=== PATIENT | male | born 1980 | race African-American/Black ===

== ENCOUNTER 2017-03-14 21:04 | Emergency (ER) | payer MEDICAID ==
[~2017-03-14] VITALS: Ht 182.9 cm; Wt 68.0 kg
--- NOTE | 2017-03-14 21:28 | NUR ---
Pt ambulated to room with steady gait. Pt c/o R. lower back pain radiating down to right buttock. Pt sts started yesterday and is unrelieved with home medications. Pt resting in position of comfort for self, awaiting further eval. Family at bedside.
[2017-03-14] MEDS ORDERED: PROMETHAZINE HCL 25 MG/1 ML VIAL IM ONE (21:45)
[2017-03-14] MEDS ORDERED: HYDROMORPHONE 1 MG/1 ML DISP.SYRIN IM ONE (21:45)
--- NOTE | 2017-03-14 21:49 | NUR ---
Pt seen by Md. Pt medicated for pain, will monitor for effects of medication. Pt resting in position of comfort for self. Family at bedside.
[2017-03-14] MEDS ORDERED: HYDROMORPHONE 1 MG/1 ML DISP.SYRIN ONE (21:55)
[2017-03-14] MEDS ORDERED: PROMETHAZINE HCL 25 MG/1 ML VIAL ONE (21:55)
--- NOTE | 2017-03-14 22:26 | NUR ---
Pt sts pain improved with medication. Pt stable for discharge per MD. Pt and family given ACI. Both verbalized understanding of dc instructions. 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
[2017-03-14 22:28] VITALS: BP 107/77
== END 2017-03-14 22:28 | disposition home or self-care (01) ==
LOC: ER 21:07
DX: M54.5 Low back pain (principal); F10.10 Alcohol abuse, uncomplicated
CPT/HCPCS: A4663; J1170; J2550

== ENCOUNTER 2017-12-21 11:36 | Emergency (ER) | payer MEDICAID ==
[~2017-12-21] VITALS: Ht 180.3 cm; Wt 68.0 kg
[2017-12-21] MEDS ORDERED: CEFTRIAXONE 500 MG VIAL IM ONE (12:00)
[2017-12-21] MEDS ORDERED: AZITHROMYCIN 250 MG TABLET PO ONE (12:00)
[2017-12-21] MEDS ORDERED: LIDOCAINE HCL 1% 20 ML VIAL ONE (12:10)
[2017-12-21] MEDS ORDERED: AZITHROMYCIN 250 MG TABLET ONE (12:10)
[2017-12-21] MEDS ORDERED: CEFTRIAXONE 500 MG VIAL ONE (12:10)
--- NOTE | 2017-12-21 12:19 | NUR ---
Patient discharged to home in stable conditon. Written and verbal after care instructions given. Patient verbalizes understanding of instructions.PT SAYS HAS HAD ROCEPHIN IM SHOTS BEFRE AND SIS NOT HAVE ALLERGIC REACTION TO IT.
== END 2017-12-21 12:23 | disposition home or self-care (01) ==
LOC: ER 11:36
DX: A64 Unspecified sexually transmitted disease (principal)
CPT/HCPCS: A4663; J0696; J3490; Q0144

== ENCOUNTER 2018-01-06 12:25 | Emergency (ER) | payer MEDICAID ==
[~2018-01-06] VITALS: Ht 180.3 cm; Wt 68.0 kg
[2018-01-06] MEDS ORDERED: KETOROLAC TROMETHAMINE 30 MG INJ IM ONE (12:45)
[2018-01-06] MEDS ORDERED: KETOROLAC TROMETHAMINE 30 MG INJ ONE (12:50)
--- NOTE | 2018-01-06 13:08 | NUR ---
mse completed, medication admin. pt d/c'd home, aci/rx x4 given. pt ambulated w/o diff/took all belongings.
[2018-01-06 13:10] VITALS: BP 120/74
== END 2018-01-06 13:10 | disposition home or self-care (01) ==
LOC: ER 12:29
DX: M54.5 Low back pain (principal)
CPT/HCPCS: A4663; J1885

== ENCOUNTER 2019-01-28 18:29 | Emergency (ER) | payer MEDICAID ==
[~2019-01-28] VITALS: Ht 180.3 cm; Wt 68.0 kg
[2019-01-28 18:56] VITALS: BP 116/75
--- NOTE | 2019-01-28 18:56 | NUR ---
Patient discharged to home in stable conditon. Written and verbal after care instructions given. Patient verbalizes understanding of instructions.
== END 2019-01-28 18:57 | disposition home or self-care (01) ==
LOC: ER 18:32
DX: A60.00 Herpesviral infection of urogenital system, unspecified (principal)
CPT/HCPCS: A4663

== ENCOUNTER 2019-03-31 22:21 | Emergency (ER) | payer MEDICAID ==
[~2019-03-31] VITALS: Ht 180.3 cm; Wt 68.0 kg
--- NOTE | 2019-03-31 22:41 | NUR ---
ekg monitor tech in room
--- NOTE | 2019-03-31 22:57 | NUR ---
Patient discharged to home in stable conditon. Written and verbal after care instructions given. Patient verbalizes understanding of instructions. patient ambulatory with steady gait. Patient personal belongings and exit care package taken with patient upon discharge.
[2019-03-31 23:00] VITALS: BP 113/70
== END 2019-03-31 22:57 | disposition home or self-care (01) ==
LOC: ER 22:23
DX: S56.416A Strain of extensor muscle, fascia and tendon of left ring finger at forearm level, initial encounter (principal); X58.XXXA Exposure to other specified factors, initial encounter; Y93.89 Activity, other specified; Y92.89 Other specified places as the place of occurrence of the external cause; Y99.8 Other external cause status
CPT/HCPCS: 73140; A4663

== ENCOUNTER 2019-04-14 10:01 | Emergency (ER) | payer MEDICAID ==
[~2019-04-14] VITALS: Ht 180.3 cm; Wt 68.0 kg
--- NOTE | 2019-04-14 10:19 | NUR ---
at bedside to examine patient.
--- NOTE | 2019-04-14 10:25 | NUR ---
Patient was given discharge instruction and prescription given to patient by physician. Patient understood all instructions and is prepared to discharge to self care.
== END 2019-04-14 10:27 | disposition home or self-care (01) ==
LOC: ER 10:01
DX: A60.00 Herpesviral infection of urogenital system, unspecified (principal)
CPT/HCPCS: A4663

== ENCOUNTER 2019-06-10 07:06 | Emergency (ER) | payer MEDICAID ==
[~2019-06-10] VITALS: Ht 182.9 cm; Wt 70.3 kg
--- NOTE | 2019-06-10 07:17 | NUR ---
at bedside to examine patient.
--- NOTE | 2019-06-10 08:19 | NUR ---
DCD instruction and prescription who verbalized understanding left room ambulatory no c/of pain at this time. girlfriend/ at bedside.
== END 2019-06-10 08:25 | disposition home or self-care (01) ==
LOC: ER 07:07
DX: S93.401A Sprain of unspecified ligament of right ankle, initial encounter (principal); X50.1XXA Overexertion from prolonged static or awkward postures, initial encounter; Y93.89 Activity, other specified; Y92.89 Other specified places as the place of occurrence of the external cause; Y99.8 Other external cause status
CPT/HCPCS: 73610; A4663

== ENCOUNTER 2019-06-22 22:19 | Emergency (ER) | payer MEDICAID ==
[~2019-06-22] VITALS: Ht 180.3 cm; Wt 70.3 kg
--- NOTE | 2019-06-22 22:28 | NUR ---
Patient came from home, chief complain of back pain. rated at 10, from scale 0-10. Describes the pain as throbbing that radiates to the right lefg. patient also states she would like medication ofr his genital herpes.
--- NOTE | 2019-06-22 22:31 | NUR ---
Dr. Vidal at bedside for evaluation and assessment.
[2019-06-22] MEDS ORDERED: KETOROLAC TROMETHAMINE 60 MG INJ IM ONE ×2 (22:37→22:45)
[2019-06-22] MEDS ORDERED: ACYCLOVIR 500 MG VIAL IV ONE (22:38)
[2019-06-22] MEDS ORDERED: VALACYCLOVIR HCL 500 MG TABLET ONE (22:40)
[2019-06-22] MEDS ORDERED: VALACYCLOVIR HCL 500 MG TABLET PO ONE (22:45)
--- NOTE | 2019-06-22 22:47 | NUR ---
Patient discharged to home in stable conditon. Written and verbal after care instructions given. Patient verbalizes understanding of instructions. Patient self-ambulatory with steady gait. Patient is alert and oriented x4. Exit care package and personal belongings taken home with the patient at discharge. Patient denies any pain/discomfort at discharge. Pt has good understanding of health and discharge instructions. Consents to follow up with PCP.
[2019-06-22 22:48] VITALS: BP 110/84
== END 2019-06-22 22:49 | disposition home or self-care (01) ==
LOC: ER 22:20
DX: M54.6 Pain in thoracic spine (principal); A60.00 Herpesviral infection of urogenital system, unspecified; Z76.0 Encounter for issue of repeat prescription
CPT/HCPCS: 96372; 99283; J1885; A4663; J0133

== ENCOUNTER 2019-11-02 05:48 | Emergency (ER) | payer MEDICAID ==
[~2019-11-02] VITALS: Ht 180.3 cm; Wt 74.8 kg
--- NOTE | 2019-11-02 06:12 | NUR ---
pt presented to ER in a wheelchair c/o sciatica pain on R side, starting from pts back down to his leg. pt is a/ox4, able to speek in complete sentences, speech is clear, no neuro deficit noted.
[2019-11-02] MEDS ORDERED: HYDROCODONE/APAP 10-325 MG TABLET PO ONE (06:15)
[2019-11-02] MEDS ORDERED: KETOROLAC TROMETHAMINE 60 MG INJ IM ONE ×2 (06:15→06:22)
[2019-11-02] MEDS ORDERED: HYDROCODONE/APAP 10-325 MG TABLET ONE (06:22)
[2019-11-02] MEDS ORDERED: ONDANSETRON ODT 4 MG TAB.RAPDIS SL ONE (06:30)
[2019-11-02] MEDS ORDERED: ONDANSETRON HCL 4 MG TABLET ONE (06:32)
--- NOTE | 2019-11-02 06:38 | NUR ---
Patient discharged to home in stable conditon.Pt ambulated w/steady gait accompanied by his gf. Written and verbal after care instructions given. Patient verbalizes understanding of instructions.All belongings with patient.
[2019-11-02 06:41] VITALS: BP 102/70
== END 2019-11-02 06:50 | disposition home or self-care (01) ==
LOC: ER 05:50
DX: M54.5 Low back pain (principal); Z60.2 Problems related to living alone
CPT/HCPCS: 96372; 99283; J1885; A4663; Q0162

== ENCOUNTER 2019-11-15 20:41 | Emergency (ER) | payer MEDICAID ==
[~2019-11-15] VITALS: Ht 180.3 cm; Wt 74.8 kg
--- NOTE | 2019-11-15 20:53 | NUR ---
DR ROBINS AT BEDSIDE FOR MSE.
[2019-11-15] MEDS ORDERED: PANTOPRAZOLE SODIUM 40 MG TABLET.DR PO ONE ×2 (21:00→21:03)
[2019-11-15] MEDS ORDERED: MAG HYDROX/AL HYDROX/SIMETH 30 ML LIQUID UDC PO ONE (21:00)
[2019-11-15] MEDS ORDERED: DICYCLOMINE HCL LIQ 10 MG/5 ML UDC PO ONE (21:00)
[2019-11-15] MEDS ORDERED: MAG HYDROX/AL HYDROX/SIMETH 30 ML LIQUID UDC ONE (21:02)
[2019-11-15] MEDS ORDERED: DICYCLOMINE HCL LIQ 10 MG/5 ML UDC ONE (21:03)
--- NOTE | 2019-11-15 21:35 | NUR ---
XRAY at bedside.
--- NOTE | 2019-11-15 21:57 | NUR ---
Patient discharged to home in stable conditon. Written and verbal after care instructions given. Patient verbalizes understanding of instructions. Pt ambulated out of ER with stable gait. All belongings with pt. No acute distress noted.
[2019-11-15 21:58] VITALS: BP 125/82
== END 2019-11-15 21:59 | disposition home or self-care (01) ==
LOC: ER 20:41
DX: R10.13 Epigastric pain (principal)
CPT/HCPCS: 71045; 73030; A4663

== ENCOUNTER 2020-05-31 05:35 | Emergency (ER) | payer MEDICAID ==
[~2020-05-31] VITALS: Ht 180.3 cm; Wt 70.3 kg
--- NOTE | 2020-05-31 05:54 | NUR ---
Dr. Vidal at bedside for MSE.
[2020-05-31] MEDS ORDERED: HYDROCODONE/APAP 10-325 MG TABLET PO ONE (06:00)
[2020-05-31] MEDS ORDERED: KETOROLAC TROMETHAMINE 30 MG INJ IM ONE (06:00)
[2020-05-31] MEDS ORDERED: ONDANSETRON ODT 4 MG TAB.RAPDIS SL ONE (06:00)
[2020-05-31] MEDS ORDERED: KETOROLAC TROMETHAMINE 30 MG INJ ONE (06:03)
[2020-05-31] MEDS ORDERED: HYDROCODONE/APAP 10-325 MG TABLET ONE (06:04)
[2020-05-31] MEDS ORDERED: ONDANSETRON ODT 4 MG TAB.RAPDIS ONE (06:04)
--- NOTE | 2020-05-31 06:11 | NUR ---
Patient discharged to home in stable condition. Written and verbal after care instructions given. Patient verbalizes understanding of instructions. Stressed follow up or return to ER for worsening s/s. Patient out of ER with steady gait, no acute signs of distress, VSS, all belongings taken, instructed not to drive.
[2020-05-31 06:12] VITALS: BP 105/67
== END 2020-05-31 06:14 | disposition home or self-care (01) ==
LOC: ER 05:37
DX: M54.5 Low back pain (principal); Z86.19 Personal history of other infectious and parasitic diseases
CPT/HCPCS: 96372; 99283; J1885; A4663; Q0162

== ENCOUNTER 2020-08-28 19:36 | Emergency (ER) | payer MEDICAID | END 2020-08-28 20:12 | disposition left against medical advice (07) | LOC: ER 19:38 | DX: Z75.3 Unavailability and inaccessibility of health-care facilities (principal) ==

== ENCOUNTER 2021-02-02 21:06 | Emergency (ER) | payer MEDICAID ==
[~2021-02-02] VITALS: Ht 182.9 cm; Wt 77.1 kg
--- NOTE | 2021-02-02 21:30 | NUR ---
Pt. arrived from home, chief complaint is sore throat that has not been relieved by otc medication. Pt. states his neck feels swollen in his lymph node area, his tounge also feels swollen and painful to him. Pt. also states this pain is radiating to his head giving him a headache. Pt. states pain is 12/10.
[2021-02-02] MEDS ORDERED: AMOX250T PO (21:43)
[2021-02-02] MEDS ORDERED: DEXAMETHASONE SOD PHOSPHATE 4 MG INJ IM ONE (21:45)
[2021-02-02] MEDS ORDERED: DEXAMETHASONE SOD PHOSPHATE 4 MG INJ ONE (21:45)
--- NOTE | 2021-02-02 21:48 | NUR ---
Patient discharged to home in stable condition. Written and verbal after care instructions given. Patient verbalizes understanding of instructions. Stressed follow up or return to ER for worsening s/s. Vss, all belongings with pt.
[2021-02-02] MEDS ORDERED: AMOXicillin 250 MG CAPSULE PO ONE (22:00)
[2021-02-02] MEDS ORDERED: AMOXicillin 250 MG CAPSULE ONE (22:03)
[2021-02-02 22:19] VITALS: BP 119/69
== END 2021-02-02 21:48 | disposition home or self-care (01) ==
LOC: ER 21:07
DX: J02.9 Acute pharyngitis, unspecified (principal); Z86.19 Personal history of other infectious and parasitic diseases
CPT/HCPCS: 96372; 99283; J1100; A4663

== ENCOUNTER 2021-03-04 16:05 | Emergency (ER) | payer MEDICAID ==
[~2021-03-04] VITALS: Ht 182.9 cm; Wt 72.6 kg
[~2021-03-04 16:05] MED LIST: AMOX250T PO
--- NOTE | 2021-03-04 16:18 | NUR ---
Dr Vidal at the bedside for MSE.
[2021-03-04] MEDS ORDERED: KETOROLAC TROMETHAMINE 15 MG INJ IM ONE (16:30)
[2021-03-04] MEDS ORDERED: KETOROLAC TROMETHAMINE 15 MG INJ ONE (16:34)
[2021-03-04] MEDS ORDERED: PRED20TA PO (16:50)
[2021-03-04] MEDS ORDERED: CYCL5TAB PO (16:50)
[2021-03-04] MEDS ORDERED: HYDR-3972 PO (16:50)
[2021-03-04] MEDS ORDERED: ONDA4TAB5 PO (16:50)
[2021-03-04 16:58] VITALS: BP 109/68
--- NOTE | 2021-03-04 16:58 | NUR ---
Patient discharged to home in stable condition. Written and verbal after care instructions given. Patient verbalizes understanding of instructions. Stressed follow up or return to ER for worsening s/s. Pt left ER w/ steady gait.
== END 2021-03-04 16:59 | disposition home or self-care (01) ==
LOC: ER 16:06
DX: M54.41 Lumbago with sciatica, right side (principal)
CPT/HCPCS: 96372; 99283; J1885; A4663

== ENCOUNTER 2021-12-03 20:58 | Emergency (ER) | payer MEDICAID ==
[~2021-12-03] VITALS: Ht 180.3 cm; Wt 74.8 kg
[~2021-12-03 20:58] MED LIST changes: +CYCL5TAB PO; +HYDR-3972 PO; +ONDA4TAB5 PO; +PRED20TA PO
[2021-12-03] MEDS ORDERED: CYCL10TA9 PO (21:55)
[2021-12-03] MEDS ORDERED: HYDR-3980 PO (21:55)
--- NOTE | 2021-12-03 21:55 | NUR ---
SEEN AND EXAMINED BY TAMAR LOPEZ AT B/S.
[2021-12-03] MEDS ORDERED: CYCLOBENZAPRINE HCL 10 MG TABLET PO ONE (22:00)
[2021-12-03] MEDS ORDERED: KETOROLAC TROMETHAMINE 60 MG INJ IM ONE ×2 (22:00→22:10)
[2021-12-03] MEDS ORDERED: ONDANSETRON ODT 4 MG TAB.RAPDIS SL ONE (22:00)
[2021-12-03] MEDS ORDERED: HYDROCODONE/APAP 10-325 MG TABLET PO ONE (22:00)
[2021-12-03] MEDS ORDERED: ONDANSETRON ODT 4 MG TAB.RAPDIS ONE (22:10)
[2021-12-03] MEDS ORDERED: CYCLOBENZAPRINE HCL 10 MG TABLET ONE (22:11)
[2021-12-03] MEDS ORDERED: HYDROCODONE/APAP 10-325 MG TABLET ONE (22:11)
--- NOTE | 2021-12-03 23:09 | NUR ---
Patient discharged to home in stable condition. Written and verbal after care instructions given. Patient verbalizes understanding of instructions. Stressed follow up or return to ER for worsening s/s. V/S WNL AND PATIENT WENT HOME WITH ALL BELONGINGS AND AMBULATORY ,AAOX4/MAEX4.
[2021-12-03 23:11] VITALS: BP 105/68
== END 2021-12-03 22:26 | disposition home or self-care (01) ==
LOC: ER 21:01
DX: G89.29 Other chronic pain (principal); M54.50 Low back pain, unspecified
CPT/HCPCS: 96372; 99284; J1885; A4663; Q0162

== ENCOUNTER 2022-02-14 08:31 | Emergency (ER) | payer MEDICAID ==
[~2022-02-14] VITALS: Ht 180.3 cm; Wt 74.8 kg
[~2022-02-14 08:31] MED LIST changes: +CYCL10TA9 PO; +HYDR-3980 PO
--- NOTE | 2022-02-14 08:48 | NUR ---
DR KOCH AT BEDSIDE FOR EVALUATION.
[2022-02-14] MEDS ORDERED: KETOROLAC TROMETHAMINE 60 MG INJ IM ONE ×2 (09:00→09:04)
[2022-02-14 09:56] LABS: *BILIRUBIN,URIN NEGATIVE (NEGATIVE); *BLOOD, URINE NEGATIVE (NEGATIVE); *CLARITY,URINE CLEAR (CLEAR); *COLOR,URINE YELLOW (YELLOW); *KETONES,URINE NEGATIVE (NEGATIVE); *UROBILINOGEN,URINE 0.2 E.U./dl (NORMAL); LEUKOCYTE ESTERASE ,URINE NEGATIVE (NEGATIVE); NITRITE, URINE NEGATIVE (NEGATIVE); UGLUCOSE NEGATIVE (NEGATIVE)
[2022-02-14] MEDS ORDERED: HYDR-4209 PO (10:57)
[2022-02-14 11:05] VITALS: BP 102/55
--- NOTE | 2022-02-14 11:05 | NUR ---
Patient discharged to home in stable condition. Written and verbal after care instructions given. Patient verbalizes understanding of instructions. Stressed follow up or return to ER for worsening s/s.
== END 2022-02-14 11:06 | disposition home or self-care (01) ==
LOC: ER 08:33
DX: R10.9 Unspecified abdominal pain (principal)
CPT/HCPCS: 81003; 96372; 99283; J1885; A4663

== ENCOUNTER 2022-11-24 23:35 | Emergency (ER) | payer MEDICAID ==
[~2022-11-24] VITALS: Ht 180.3 cm; Wt 77.1 kg
[~2022-11-24 23:35] MED LIST changes: +HYDR-4209 PO
--- NOTE | 2022-11-24 23:50 | NUR ---
Dr Wallis at bedside, MSE in progress
[2022-11-25] MEDS ORDERED: ONDANSETRON HCL 4 MG TABLET PO ONE
[2022-11-25] MEDS ORDERED: HYDROMORPHONE 1 MG/1 ML DISP.SYRIN IM ONE
[2022-11-25] MEDS ORDERED: KETOROLAC TROMETHAMINE 60 MG INJ IM ONE ×2 (00:04)
[2022-11-25] MEDS ORDERED: HYDROMORPHONE 2 MG/1 ML DISP.SYRIN ONE (00:04)
[2022-11-25] MEDS ORDERED: ONDANSETRON HCL 4 MG TABLET ONE (00:04)
[2022-11-25] MEDS ORDERED: DOCU-141 PO (00:05)
[2022-11-25] MEDS ORDERED: HYDR-3980 PO (00:05)
--- NOTE | 2022-11-25 00:12 | NUR ---
Patient discharged to home in stable condition. Written and verbal after care instructions given. Patient verbalizes understanding of instructions. Stressed follow up or return to ER for worsening s/s. Patient is a/ox4, NAD noted. patient is ambulatory with steady gait
[2022-11-25 00:14] VITALS: BP 115/73
== END 2022-11-25 00:18 | disposition home or self-care (01) ==
LOC: ER 23:37
DX: M54.41 Lumbago with sciatica, right side (principal); Z79.2 Long term (current) use of antibiotics; Z79.899 Other long term (current) drug therapy
CPT/HCPCS: 99284; 96372 ×2; J1885; J1170; A4663; Q0162

== ENCOUNTER 2023-05-05 07:57 | Emergency (ER) | payer MEDICAID ==
[~2023-05-05] VITALS: Ht 180.3 cm; Wt 77.1 kg
[~2023-05-05 07:57] MED LIST changes: +DOCU-141 PO
[2023-05-05] MEDS ORDERED: ACETAMINOPHEN ES 500 MG TABLET ONE (08:29)
[2023-05-05] MEDS ORDERED: LIDOCAINE 5% PATCH TD ONE ×2 (08:29→08:30)
[2023-05-05] MEDS ORDERED: CYCLOBENZAPRINE HCL 10 MG TABLET ONE (08:29)
[2023-05-05] MEDS ORDERED: KETOROLAC TROMETHAMINE 30 MG INJ ONE (08:29)
[2023-05-05] MEDS ORDERED: CYCLOBENZAPRINE HCL 10 MG TABLET PO ONE (08:30)
[2023-05-05] MEDS ORDERED: ACETAMINOPHEN ES 500 MG TABLET PO ONE (08:30)
[2023-05-05] MEDS ORDERED: KETOROLAC TROMETHAMINE 30 MG INJ IM ONE (08:30)
[2023-05-05] MEDS ORDERED: CYCL10TA9 PO (09:26)
[2023-05-05] MEDS ORDERED: ACET-73 PO (09:26)
[2023-05-05] MEDS ORDERED: IBUP-1490 PO (09:26)
[2023-05-05 09:42] VITALS: BP 100/59; O2SAT 99
== END 2023-05-05 09:44 | disposition home or self-care (01) ==
LOC: ER 07:59
DX: M54.41 Lumbago with sciatica, right side (principal); Z79.899 Other long term (current) drug therapy
CPT/HCPCS: 99284; 96372; J1885; A4663; A9150

== ENCOUNTER 2023-09-30 10:27 | Emergency (ER) | payer SELFPAY ==
[~2023-09-30] VITALS: Ht 180.3 cm; Wt 76.2 kg
[~2023-09-30 10:27] MED LIST changes: +ACET-73 PO; +IBUP-1490 PO
[2023-09-30] MEDS ORDERED: CEFTRIAXONE 500 MG VIAL IM ONE (10:45)
[2023-09-30] MEDS ORDERED: CEFTRIAXONE 500 MG VIAL ONE (10:50)
[2023-09-30] MEDS ORDERED: LIDOCAINE HCL 2% 20 ML VIAL ONE (10:51)
[2023-09-30 10:54] LABS: *BILIRUBIN,URIN NEGATIVE (NEGATIVE); *BLOOD, URINE NEGATIVE (NEGATIVE); *CLARITY,URINE CLEAR (CLEAR); *COLOR,URINE YELLOW (YELLOW); *KETONES,URINE NEGATIVE (NEGATIVE); *PROTEIN,URINE NEGATIVE (NEGATIVE); LEUKOCYTE ESTERASE ,URINE 1+ (NEGATIVE); NITRITE, URINE NEGATIVE (NEGATIVE); UGLUCOSE NEGATIVE (NEGATIVE)
[2023-09-30] MEDS ORDERED: DOXY-326 PO (10:55)
[2023-09-30 10:59] VITALS: BP 132/78; TEMP 98.2; O2SAT 98
[2023-09-30 11:48] LABS: BACTERIA,URINE NONE SEEN /HPF (NONE SEEN); SQUAMOUS EPITHELIAL CELL,UR FEW /HPF (NONE SEEN)
[2023-10-03 05:07] LABS: *CHLAMYDIA NAA Negative (Negative); *GC NAA Positive (Negative); *TRIC.VAG. NAA Negative (Negative)
== END 2023-09-30 11:40 | disposition home or self-care (01) ==
LOC: ER 10:27
DX: A64 Unspecified sexually transmitted disease (principal); R36.9 Urethral discharge, unspecified; Z98.890 Other specified postprocedural states; Z79.899 Other long term (current) drug therapy
CPT/HCPCS: 87491; A4606; A4663; J0696; J3490

== ENCOUNTER 2024-12-05 22:19 | Emergency (ER) | payer OTHER ==
[~2024-12-05] VITALS: Ht 180.3 cm; Wt 74.8 kg
[~2024-12-05 22:19] MED LIST changes: +DOXY-326 PO
[2024-12-06 00:18] LABS: *BILIRUBIN,URIN NEGATIVE (NEGATIVE); *CLARITY,URINE CLEAR (CLEAR); *COLOR,URINE YELLOW (YELLOW); *KETONES,URINE NEGATIVE (NEGATIVE); *PROTEIN,URINE NEGATIVE (NEGATIVE); LEUKOCYTE ESTERASE ,URINE 1+ (NEGATIVE); NITRITE, URINE NEGATIVE (NEGATIVE); UGLUCOSE NEGATIVE (NEGATIVE)
[2024-12-06] MEDS ORDERED: DOXY100C5 PO (00:22)
[2024-12-06 00:23] LABS: *BLOOD, URINE TRACE (NEGATIVE)
[2024-12-06] MEDS ORDERED: AZIT250T PO (00:29)
[2024-12-06] MEDS ORDERED: VALA500T34 PO (00:29)
[2024-12-06] MEDS ORDERED: CEFTRIAXONE 1 G VIAL ONE (00:30)
[2024-12-06 00:35] LABS: BACTERIA,URINE NONE SEEN /HPF (NONE SEEN); RBC,URINE 0-3 /HPF (0-3); SQUAMOUS EPITHELIAL CELL,UR NONE SEEN /HPF (NONE SEEN)
[2024-12-06] MEDS: CEFTRIAXONE 1 G VIAL IM ONE (00:39)
[2024-12-06 00:41] VITALS: BP 128/64; TEMP 98; O2SAT 99
[2024-12-07 12:12] LABS: CHLAMYDIA TRACHOMATIS NAA Positive (Negative); NEISSERIA GONORRHOEAE NAA Negative (Negative)
== END 2024-12-06 00:43 | disposition home or self-care (01) ==
LOC: ER 22:25
DX: A64 Unspecified sexually transmitted disease (principal); R30.0 Dysuria; Z79.52 Long term (current) use of systemic steroids; Z79.624 Long term (current) use of inhibitors of nucleotide synthesis; Z86.19 Personal history of other infectious and parasitic diseases; Z88.7 Allergy status to serum and vaccine
CPT/HCPCS: 99283; 81001; 87086; 96372; 87491; 87591; J0696; A4606; A4663

== ENCOUNTER 2025-03-28 17:32 | Emergency (ER) | payer OTHER ==
[~2025-03-28] VITALS: Ht 180.3 cm; Wt 74.8 kg
[~2025-03-28 17:32] MED LIST changes: +AZIT250T PO; +DOXY100C5 PO; +VALA500T34 PO
[2025-03-28] MEDS ORDERED: IBUP-1957 PO (18:21)
[2025-03-28] MEDS ORDERED: HYDR-3980 PO (18:21)
[2025-03-28] MEDS ORDERED: KETOROLAC TROMETHAMINE 30 MG INJ ONE (18:25)
[2025-03-28] MEDS: KETOROLAC TROMETHAMINE 30 MG INJ IM ONE (18:26)
[2025-03-28 18:49] VITALS: BP 101/66; TEMP 98; O2SAT 97
== END 2025-03-28 18:43 | disposition home or self-care (01) ==
LOC: ER 17:36
DX: M54.50 Low back pain, unspecified (principal); Z79.52 Long term (current) use of systemic steroids; Z79.624 Long term (current) use of inhibitors of nucleotide synthesis; Z88.7 Allergy status to serum and vaccine; Z87.09 Personal history of other diseases of the respiratory system; Z87.39 Personal history of other diseases of the musculoskeletal system and connective tissue; Z87.2 Personal history of diseases of the skin and subcutaneous tissue
CPT/HCPCS: 99283; 96372; J1885; A4606; A4663